=== PATIENT | female | born 1980 | race Caucasian/White ===

== ENCOUNTER → 2016-12-24 | Outpatient (CLI) | payer BC ==
[2016-12-24 17:29] LABS: BILIRUBIN,URINE NEGATIVE (NEG); CLARITY,URINE CLEAR (CLEAR); GLUCOSE, URINE (UA) NEGATIVE (NEG); LEUKOCYTE ESTERASE ,URINE NEGATIVE (NEG); NITRATE,URINE NEGATIVE (NEG); OCCULT BLOOD,URINE NEGATIVE (NEG); PROTEIN,URINE NEGATIVE (NEG); UROBILINOGEN,URINE 0.2 EU/dL (0.2)
[2016-12-24 17:49] LABS: URINE SAMPLE TYPE CLEAN CATCH URINE
== END ==
LOC: MOB LAB 16:17
PROVIDERS: ATTEND Student in an Organized Health Care Education/Training Program
DX: R10.11 Right upper quadrant pain (principal); R11.0 Nausea
CPT/HCPCS: 81003

== ENCOUNTER → 2016-12-25 | Outpatient (CLI) | payer BC ==
[2016-12-25 13:01] LABS: HEMATOCRIT 43.5 % (37.0-47.0); HEMOGLOBIN 14.5 g/dL (12.0-16.0); MEAN CORPUSCULAR HEMOGLOBIN 29.8 PG (27-31); MEAN CORPUSCULAR HGB CONC 33.3 g/dL (33-37); MEAN PLATELET VOLUME 10.7 FL (7.4-12.2); RDW COEFFICIENT OF VARIATION 13.2 % (11.5-14.5); RED BLOOD COUNT 4.87 10^6/uL (4.20-5.40); WHITE BLOOD COUNT 10.4 10^3/uL (4.8-10.8)
[2016-12-25 13:24] LABS: ASPARTATE AMINO TRANSFERASE 21 IU/L (8-39); BLOOD UREA NITROGEN 12 mg/dL (7-22); BUN/CREATININE RATIO 17.14 (6-20); CHLORIDE 105 meq/L (98-112); CREATININE 0.7 mg/dL (0.50-1.20); EST GLOMERULAR FILTRATION > 60 (>60 ml/min/1.73m(2)); GLUCOSE 87 mg/dL (78-110); SODIUM 142 meq/L (135-145); TOTAL PROTEIN 7.9 g/dL (6.1-8.0)
[2016-12-25 13:52] LABS: AMYLASE 72 U/L (30-110)
== END ==
LOC: LAB 12:46
PROVIDERS: ATTEND Student in an Organized Health Care Education/Training Program
DX: R10.11 Right upper quadrant pain (principal)
CPT/HCPCS: 36415; 80053; 82150; 83690; 85027

== ENCOUNTER → 2016-12-27 | Outpatient (CLI) | payer BC ==
--- NOTE | 2016-12-27 15:10 | DI ---
GALLBLADDER AND LIVER ULTRASOUND, 12/27/2016 11:32 AM: Clinical History: Right upper quadrant abdominal pain. Previous Exam: None at this facility. Technique: Scans are performed through the right upper quadrant in multiple projections. The patient was rolled from side to side and the gallbladder was balloted with the probe to facilitate visualizat ion of small gallstones. The gallbladder is only moderately distended. There is a large gallstone measuring 25 mm in diameter with associated acoustical shadowing. There are smaller gallstones in the range of 3-5 mm adjacent to the large gallstone. The gallbladder wall is hyperechoic and thickened and measures 5 mm consistent with chronic cholecystitis. The common bile duct measures 4 mm. There is no Courtney's sign. The pancre as is visualized from the head to the body and is normal. The visualized portions of the liver, right kidney, and IVC are normal. The aorta is normal. Readin. Cholelithiasis with probable chronic cholecystitis. There is no Courtney's sign. The common bile du ct measures 5 mm. 2. The liver, right kidney, pancreas, IVC, and aorta are normal.
== END ==
LOC: US 11:16
PROVIDERS: ATTEND Student in an Organized Health Care Education/Training Program
DX: R10.11 Right upper quadrant pain (principal); K80.10 Calculus of gallbladder with chronic cholecystitis without obstruction
CPT/HCPCS: 76705

== ENCOUNTER 2017-01-03 07:57 | Day surgery (SDC) | payer BC ==
[~2017-01-03 07:57] MED LIST: BUPIVACAINE 0.25% W/ EPI - 10 ML VIAL ONE; LIDOCAINE MPF 2% - 5 ML (20 MG/1 ML) ONE; LIDOCAINE W/ SODIUM BICARB 0.5 ML SYR ONE; Lactated Ringers 1,000 ML PRIMARY IV ONE; MIDAZOLAM 5 MG/1 ML ONE; ROCURONIUM 10 MG/1 ML - 5 ML VIAL IVP ONE; Sodium Chloride 0.9% vial 10 ML ONE; fentaNYL Inj 250 MCG/5 ML VIAL ONE
[2017-01-03 08:41] LABS: URINE SPECIFIC GRAVITY - MAN 1.019
[2017-01-03] MEDS ORDERED: ONDANSETRON 4 MG/2 ML VIAL ONE (09:10)
[2017-01-03] MEDS ORDERED: DEXAMETHASONE PF 10 MG/1 ML VIAL ONE (09:11)
[2017-01-03] MEDS ORDERED: Sodium Chloride 0.9% vial 10 ML ONE (09:15)
[2017-01-03] MEDS ORDERED: fentaNYL Inj 100 MCG/2 ML VIAL IVP PRN (09:17)
[2017-01-03] MEDS ORDERED: Prochlorperazine Edisylate Inj 10mg/2ml vial IVP PRN (09:17)
[2017-01-03] MEDS ORDERED: NORMAL SALINE 10 ML SYRINGE FLUSH IVP PRN ×2 (09:17→10:36)
[2017-01-03] MEDS ORDERED: HYDROmorphone 2 MG/1 ML IVP PRN (09:17)
[2017-01-03] MEDS ORDERED: Lactated Ringers 1,000 ML PRIMARY IV SCH ×2 (09:30→10:45)
[2017-01-03] MEDS ORDERED: SUFENTANIL 50 MCG/1 ML ONE (09:51)
[2017-01-03] MEDS ORDERED: SUGAMMADEX SODIUM 200 MG/2 ML VIAL IV ONE (10:20)
[2017-01-03] MEDS ORDERED: KETOROLAC 30 MG/1 ML VIAL ONE (10:21)
[2017-01-03] MEDS ORDERED: HYDROcodone-APAP 7.5 MG-325 MG TABLET PO PRN (10:36)
[2017-01-03] MEDS ORDERED: MORPHINE SULFATE 2 MG/1 ML IVP PRN (10:36)
[2017-01-03] MEDS ORDERED: ONDANSETRON 4 MG/2 ML VIAL IVP PRN (10:36)
[2017-01-03] MEDS ORDERED: KETOROLAC 15 MG/1 ML VIAL IVP PRN (10:36)
--- NOTE | 2017-01-03 10:36 | GEN.OPNOTE ---
Operative Note Surgery Date: 01/03/17 Preoperative Diagnosis: Cholelithiasis Postoperative Diagnosis: Cholelithiasis with chronic cholecystitis without obstruction Procedure: Laparoscopic cholecystectomy Surgeon: Carlos Garcia MD Anesthesia Provider: Joe Calzada CRNA Anesthesia Type: General Estimated Blood Loss (mL): 5 Fluids: LR please see anesthesia notes in EMR Pathology: Gallbladder sent for pathology Indications: Patient has chronic cholecystitis with cholelithiasis Findings: Chronic inflammation and thickened gallbladder wall and cholelithiasis Complications: None Operative Summary: Patient was brought in the operating room. Placed in supine position. Given general anesthetic. Was prepped draped sterile fashion. Quarter percent Marcaine was infiltrated at all trocar sites. Small incision made below the umbilicus. Veress needle inserted pneumoperitoneum obtained. After adequate pneumoperitoneum a 10 mm trocar was placed using the Visiport. Under direct laparoscopic visualization a 10 mm trocar subxiphoid and 2 -5 mm in the midclavicular and midaxillary line. Appropriate instrument were placed. Gallbladder grasped at the fundus retracted over the liver edge. Gallbladder was grasped at Elsie's pouch. The cystic duct was dissected free. 3 hemoclips placed 2 proximally one distally and the cystic duct was divided. Likewise the cystic artery was dissected free 3 hemoclips placed and divided. The gallbladder was dissected off liver's edge using electrocautery. The gallbladder was then removed through a subumbilical incision. The abdominal cavity was irrigated until clear. The trochars were removed. The umbilicus incision was closed with 0 Vicryl suture to the fascia. The skin was reapproximated using 4-0 Vicryl simple sutures. The remainder trocar sites were 5 mm defects we will close. The remainder skin incisions closed with 4-0 Vicryl. Steri-Strips applied sterile dressings applied. Patient transferred to recovery room in stable condition. Counts were correct
[2017-01-03] MEDS ORDERED: HYDROcodone-APAP 7.5 MG-325 MG TABLET PO ONE (11:58)
[2017-01-03 13:05] VITALS: RESP 15
[2017-01-03 13:06] VITALS: TEMP 98.6
== END 2017-01-03 12:30 | disposition home or self-care (01) ==
LOC: SDSC 07:57
PROVIDERS: ATTEND Surgery
DX: K80.10 Calculus of gallbladder with chronic cholecystitis without obstruction (principal)
CPT/HCPCS: 47562; 84703; A4216; J1885; J2704; J3010; J1100; J2001; J2250; J2405; J3490; J7120

== ENCOUNTER → 2017-01-21 | Outpatient (CLI) | payer BC ==
--- NOTE | 2017-01-21 10:02 | EKG ---
[address] [address] Measurements Intervals [place] Rate: 72 P: 46 SD: 171 QRS: 5 QRSD: 101 T: 21 QT: 392 QTc: 417 Interpretive Statements SINUS RHYTHM WITH SINUS ARRHYTHMIA No previous ECG available for comparison Electronically Signed On 01-21-17 11:14:34 MDT by Jermaine Wu [email or web address]
== END ==
LOC: MOB LAB 09:49
PROVIDERS: ATTEND Student in an Organized Health Care Education/Training Program
DX: R42 Dizziness and giddiness (principal); R00.2 Palpitations; I49.9 Cardiac arrhythmia, unspecified
CPT/HCPCS: 36415; 84443; 93005; 93010